=== PATIENT | male | born 1955 | race Caucasian/White ===

== ENCOUNTER 2016-07-11 13:17 | Outpatient (CLI) | payer OTHER ==
[~2016-07-11 13:17] MED LIST: ASPIRIN ADULT L81 M1 PO; FORTESTA TOP; NEXIUM40 M1 PO
--- NOTE | 2016-07-11 14:20 | DIAGNOSTIC IMAGING REPORT ---
PROCEDURE: CT SINUS/FACIAL BONES W/O CONT CLINICAL INDICATION: SINUSITIS,CHRONIC TECHNIQUE: Noncontrast axial CT images through the sinuses. Coronal and sagittal reformations were created. COMPARISON: Sinus CT dated 09/09/2009 FINDINGS: There is opacification of the left upper nasal passage and the left ethmoid sinus. There is a mucoperiosteal thickening in the left frontal and the left maxillary sinus. There is also small amount of fluid in the sphenoid sinus. No facial bone fractures. Temporomandibular joints are normally aligned. Bony orbits are intact. Orbital soft tissues appear normal. Facial soft tissues and visible glandular structures are symmetric. IMPRESSION: 1. Pansinusitis with opacification of the left ethmoid and upper left nasal passage All CT scans at this facility use dose modulation, iterative reconstruction, and/or weight-based dosing when appropriate to reduce radiation dose to as low as reasonably achievable.
== END 2016-07-11 23:00 ==
LOC: CT SRH 13:17
DX: J32.4 Chronic pansinusitis (principal); J01.20 Acute ethmoidal sinusitis, unspecified